=== PATIENT | female | born 1945 | race Caucasian/White ===

== ENCOUNTER 2019-08-08 17:09 | Inpatient (IN) | payer OTHER ==
[~2019-08-08] VITALS: Ht 160 cm; Wt 59.9 kg
[2019-08-08] MEDS ORDERED: OXYC20TA58 PO (17:36)
[2019-08-08] MEDS ORDERED: ALPR1TAB7 PO (17:36)
[2019-08-08] MEDS ORDERED: OXYC15TA82 PO (17:36)
[2019-08-08] MEDS ORDERED: ZOLP10TA6 PO (17:36)
[2019-08-08] MEDS ORDERED: ERYT-113 PO (17:36)
[2019-08-08] MEDS ORDERED: METO-358 PO (17:37)
--- NOTE | 2019-08-08 17:47 | NUR ---
[facility] provided for pt. pt eating with good apetite.
--- NOTE | 2019-08-08 18:09 | NUR ---
transfered the pt to [facility] in stable condition. pt remained calm the whole er stay.
[2019-08-08] MEDS ORDERED: MAGNESIUM HYDROXIDE 30 ML LIQUID UDC PO PRN (18:30)
[2019-08-08] MEDS ORDERED: MAG HYDROX/AL HYDROX/SIMETH 30 ML LIQUID UDC PO PRN (18:30)
--- NOTE | 2019-08-08 18:57 | NUR ---
Pt received to care from ER, pt is calm and cooperative. According to the hold patient was overwhelmed with taking care of her mother and became anxious and agitated, breaking things at home. Upon face to face evaluation, pt is recognizing need for help, admits to events that led to her admission. Pt says she has been taking care of her mother for 8 years and she cannot handle it anymore and she "lost it." Pt is cooperative, signed paperwork. dr. Tracey and dr. Mock were notified of admission. Report is passed on to the next shift.
[2019-08-08 20:00] VITALS: BP 168/90
[2019-08-08] MEDS ORDERED: HYDROCODONE/APAP 10-325 MG TABLET PO PRN (20:00)
[2019-08-08] MEDS: ZOLPIDEM 5 MG TABLET PO PRN (22:24)
[2019-08-09] MEDS: LORAZEPAM 1 MG TABLET PO PRN ×2 (00:13→18:49)
[2019-08-09 07:39] LABS: BASOPHILS % (AUTO) 0.4 % (0.0-2.0); EOSINOPHILS % (AUTO) 0.2 % (0.0-7.0); HEMATOCRIT 39.7 % (31.2-41.9); HEMOGLOBIN 13.5 g/dL (10.9-14.3); LYMPHOCYTES # (AUTO) 1.6 K/uL (20.0-40.0); LYMPHOCYTES % (AUTO) 24.9 % (20.5-51.5); MEAN CORPUSCULAR HEMOGLOBIN 31.1 uug (24.7-32.8); MEAN CORPUSCULAR HGB CONC 34 g/dL (32.3-35.6); MEAN CORPUSCULAR VOLUME 91.7 fL (75.5-95.3); MONOCYTES # (AUTO) 0.4 K/uL (2.0-10.0); MONOCYTES % (AUTO) 6.9 % (0.0-11.0); NEUTROPHILS # (AUTO) 4.3 K/uL (1.8-8.9); NEUTROPHILS % (AUTO) 67.6 % (38.5-71.5); PLATELET COUNT (AUTO) 298 K/uL (179-408); RED BLOOD CELL COUNT(AUTO) 4.33 MIL/uL (3.63-4.92); WHITE BLOOD COUNT (AUTO) 6.4 K/uL (3.8-11.8)
[2019-08-09 07:56] LABS: BILIRUBIN,TOTAL 0.8 mg/dL (0.2-1.0); CREATININE 0.9 mg/dL (0.6-1.3); POTASSIUM 3.8 mmol/L (3.5-5.1); TOTAL PROTEIN, SERUM 7.6 g/dL (6.4-8.2)
[2019-08-09 08:02] LABS: THYROID STIMULATING HORMONE 1.106 mIU/mL (0.358-3.740)
[2019-08-09] MEDS: METOPROLOL SUCCINATE XL 50 MG TAB.SR.24H PO SCH (08:11)
[2019-08-09 08:50] LABS: MAGNESIUM 2.1 mg/dL (1.8-2.4); PHOSPHOROUS 2.9 mg/dL (2.5-4.9)
--- NOTE | 2019-08-09 11:01 | NUR ---
Social Work/Initial Discharge Note: Patient lives in her condo with her mother [address] [place] [address] [address], [place] [address] and will return home upon discharge. Embedded Software Manager will continue to work with patient family, and MD to ensure a safe and proper discharge plan.
--- NOTE | 2019-08-09 14:36 | NUR ---
Social Work/Family Contact: Golf Cart Attendant spoke with Liliana Vinicius ([phone]) patient's daughter regarding patient's hospitalization. Liliana is informed of the patient's treatment plan and spoke with Dr. Tracey who will be ordering a neurological consultation for the patient.
--- NOTE | 2019-08-09 14:38 | NUR ---
Social Work/ UR Note: belt worker spoke with Aparna family service caseworker at [facility]/[employer] (ph: [phone]; fax: [phone]). This public relations writer faxed Aparna the patient's facesheet until the H&P and other clinicals are available. (Authorization # [id number])
--- NOTE | 2019-08-09 14:50 | NUR ---
Social Work/Firearms Report ([employer]): Dairy Clerk completed and submitted a [employer] firearms report for 5150 grave disability certification. A copy of report has been placed in patient chart.
[2019-08-09 16:00] VITALS: BP 163/93
--- NOTE | 2019-08-09 16:42 | NUR ---
called and spoke with Dr. Mariscal regarding Neurology consult ordered . will continue to follow up
[2019-08-09 20:00] VITALS: BP 183/100
[2019-08-09] MEDS: ATORVASTATIN 10 MG TABLET PO SCH (20:44)
[2019-08-09] MEDS ORDERED: hydrALAZINE HCL 25 MG TABLET ONE (21:25)
[2019-08-09] MEDS: hydrALAZINE HCL 25 MG TABLET PO PRN (21:29)
--- NOTE | 2019-08-09 21:30 | NUR ---
PATIENT NOTED WITH B/P 177/99MMHG AND PULSE 80BPM. PT IN NO DISTRESS. DR BEE WAS NOTIFY AND NEW ORDER OBTAINED TO ADMINISTER APRESOLINE 25MG PO PRN Q6HRS FOR SBP>160MMHG. ORDER WAS NOTED AND CARRIED OUT, WILL CONTINUE TO MONITOR.
[2019-08-09] MEDS: ZOLPIDEM 5 MG TABLET PO PRN (22:19)
--- NOTE | 2019-08-09 23:45 | NUR ---
B/P WAS RECHECKED: 155/98MMHG AND 82BPM.
[2019-08-09 23:53] VITALS: BP 155/98
[2019-08-10] MEDS: ACETAMINOPHEN 325 MG TABLET PO PRN ×2 (04:48→19:01)
[2019-08-10] MEDS: LORAZEPAM 1 MG TABLET PO PRN (04:48)
[2019-08-10 07:30] VITALS: BP_SYST 130; BP_SYST 166; BP_DIAS 67; BP_DIAS 91
[2019-08-10] MEDS: METOPROLOL SUCCINATE XL 50 MG TAB.SR.24H PO SCH (08:11)
[2019-08-10] MEDS: AMLODIPINE 5 MG TABLET PO SCH (08:12)
[2019-08-10] MEDS ORDERED: HYDROCODONE/APAP 10-325 MG TABLET PO PRN (08:45)
[2019-08-10] MEDS: GABAPENTIN 100 MG CAPSULE PO SCH ×3 (10:35→17:10)
[2019-08-10] MEDS: SERTRALINE HCL 50 MG TABLET PO SCH (10:35)
[2019-08-10] MEDS ORDERED: FLUO60SO3 TP (10:47)
[2019-08-10] MEDS ORDERED: OMEP40CA13 PO (10:47)
[2019-08-10] MEDS ORDERED: FLUT16SP NS (10:47)
[2019-08-10] MEDS ORDERED: GABA-532 PO (10:47)
[2019-08-10] MEDS ORDERED: ALPR1TAB7 PO (10:47)
[2019-08-10] MEDS ORDERED: ZOLP10TA2 PO (10:47)
[2019-08-10] MEDS ORDERED: MELO-107 PO (10:47)
[2019-08-10] MEDS ORDERED: METO100T14 PO (10:47)
[2019-08-10] MEDS ORDERED: LATA2.5D2 EACHEYE (10:47)
[2019-08-10] MEDS ORDERED: FLUOCINONIDE 0.05% SOLU 60 ML BOTTLE TP PRN (12:45)
[2019-08-10 17:06] VITALS: BP 162/98
[2019-08-10] MEDS: hydrALAZINE HCL 25 MG TABLET PO PRN (17:14)
[2019-08-10] MEDS: diphenhydrAMINE 25 MG CAP PO PRN (20:16)
[2019-08-10] MEDS: METOPROLOL TARTRATE 50 MG TABLET PO SCH (20:16)
[2019-08-10] MEDS: ATORVASTATIN 10 MG TABLET PO SCH (20:16)
[2019-08-10] MEDS: LATANOPROST OPHT DROP 2.5 ML BOTTLE EACHEYE SCH (20:17)
[2019-08-10 20:58] VITALS: BP 136/76
[2019-08-10] MEDS ORDERED: Medication Not On Formulary EA (Metoprolol Tartrate (Lopressor) 100 MG) PO SCH (21:00)
[2019-08-10] MEDS: HYDROXYZINE PAMOATE 25 MG CAPSULE PO PRN (21:41)
--- NOTE | 2019-08-10 23:08 | NUR ---
GPS: Pt.still awake at this time and highly anxious. Asking for her Ambien for insomnia. Reminded pt.that her Ambien was discontinued and was changed to Benadryl 5omg and was given to her earlier. Vistaril 25 mg was also given to her not too long ago for anxiety. Frequent re-assurance given to pt. Quiet environment provided to facilitate sleep. Will continue to re-assure prn. Fall precautions observed.
[2019-08-11] MEDS: HYDROXYZINE PAMOATE 25 MG CAPSULE PO PRN ×3 (04:05→16:28)
[2019-08-11] MEDS: ACETAMINOPHEN 325 MG TABLET PO PRN ×3 (04:05→16:28)
[2019-08-11] MEDS: PANTOPRAZOLE SODIUM 40 MG TABLET.DR PO SCH (06:03)
[2019-08-11 07:30] VITALS: BP 169/102
[2019-08-11] MEDS: FLUTICASONE PROP NASAL SPRAY 16 GM BOTTLE NS SCH (08:20)
[2019-08-11] MEDS: METOPROLOL TARTRATE 50 MG TABLET PO SCH ×2 (08:21→20:16)
[2019-08-11] MEDS: MELOXICAM 7.5 MG TABLET PO SCH (08:21)
[2019-08-11] MEDS: SERTRALINE HCL 50 MG TABLET PO SCH (08:22)
[2019-08-11] MEDS: AMLODIPINE 5 MG TABLET PO SCH (08:22)
[2019-08-11] MEDS: GABAPENTIN 100 MG CAPSULE PO SCH ×3 (08:22→16:28)
[2019-08-11] MEDS ORDERED: Medication Not On Formulary EA (Omeprazole 40 MG) PO SCH (09:00)
[2019-08-11] MEDS ORDERED: Medication Not On Formulary EA (Meloxicam 15 MG) PO SCH (09:00)
[2019-08-11] MEDS ORDERED: LORAZEPAM 0.5 MG TABLET PO PRN (12:15)
[2019-08-11 17:34] VITALS: BP 162/88
[2019-08-11] MEDS: LATANOPROST OPHT DROP 2.5 ML BOTTLE EACHEYE SCH (20:14)
[2019-08-11] MEDS: ATORVASTATIN 10 MG TABLET PO SCH (20:15)
[2019-08-11] MEDS: diphenhydrAMINE 25 MG CAP PO PRN (20:22)
[2019-08-11 20:23] VITALS: BP 151/85
--- NOTE | 2019-08-12 01:12 | NUR ---
RECEIVED PATIENT AWAKE AND REQUESTING FOR SOMETHING TO SLEEP.SHE C/O OF SEVERAL AILMENTS THAT GIVES HER PAIN ALL OVER ESPECIALLY HER NECK.SHE ATTRIBUTED IT TO AN EEG SHE HAD EARLIER ON. SHE WAS COMPLIANT WITH HER MEDS AND KEPT COMING OUT TO REQUEST FOR SLEEP AID. AT APPROX.23;00 SHE WAS GIVEN ATIVAN FOR AGITATION AND TO HELP HER SLEEP.SHE KEPT COMING OUT TO SAY SHE NEEDED MORE. SHE WAS LEAD BACK TO BED AND QUIET ENVIRONMENT WAS PROVIDED. FREQUENT VISUAL CHECKS MADE ON HER. WILL CONTINUE TO MONITOR.
[2019-08-12] MEDS: HYDROXYZINE PAMOATE 25 MG CAPSULE PO PRN ×3 (03:44→16:58)
[2019-08-12] MEDS: ACETAMINOPHEN 325 MG TABLET PO PRN ×3 (03:52→16:58)
[2019-08-12] MEDS: PANTOPRAZOLE SODIUM 40 MG TABLET.DR PO SCH (06:26)
--- NOTE | 2019-08-12 06:37 | NUR ---
SHE SLEPT ON AND OFF FOR ONLY 03;00HRS.SHE KEPT GETTING UP AND ASKING IF SOMETHING WAS GOING ON IN THIS PLACE. WHEN I SAID NO SHE SAID' DON'T LIE TO ME'. I KNOW SOMETHING IS WRONG.AT APPROX. 03;45 I GAVE HER VISTARIL FOR HER ANXIETY. SHE ALSO LATER HAD A SHOWER.
[2019-08-12 07:30] VITALS: BP 158/92
[2019-08-12] MEDS: MELOXICAM 7.5 MG TABLET PO SCH (09:02)
[2019-08-12] MEDS: METOPROLOL TARTRATE 50 MG TABLET PO SCH ×2 (09:02→20:21)
[2019-08-12] MEDS: SERTRALINE HCL 50 MG TABLET PO SCH (09:02)
[2019-08-12] MEDS: GABAPENTIN 100 MG CAPSULE PO SCH ×3 (09:02→16:58)
[2019-08-12] MEDS: AMLODIPINE 5 MG TABLET PO SCH (09:03)
[2019-08-12] MEDS: FLUTICASONE PROP NASAL SPRAY 16 GM BOTTLE NS SCH (09:04)
[2019-08-12 16:00] VITALS: BP 161/90
[2019-08-12] MEDS: LATANOPROST OPHT DROP 2.5 ML BOTTLE EACHEYE SCH (20:20)
[2019-08-12] MEDS: diphenhydrAMINE 25 MG CAP PO PRN (20:20)
[2019-08-12] MEDS: ATORVASTATIN 10 MG TABLET PO SCH (20:20)
[2019-08-12 20:33] VITALS: BP 144/87
--- NOTE | 2019-08-12 23:53 | NUR ---
RECEIVED PATIENT AWAKE IN BED.SHE IS INTRUSIVE BUT IS AMENDABLE TO REDIRECTION. CONSTANTLY REQUESTING FOR SOMETHING TO SLEEP. SLEEP AID GIVEN WITH LITTLE EFFECT.WILL CONTINUE WITH MONITORING.
[2019-08-13] MEDS: HYDROXYZINE PAMOATE 25 MG CAPSULE PO PRN ×2 (01:20→16:32)
[2019-08-13] MEDS: ACETAMINOPHEN 325 MG TABLET PO PRN ×2 (02:33→11:20)
[2019-08-13] MEDS: PANTOPRAZOLE SODIUM 40 MG TABLET.DR PO SCH (06:22)
--- NOTE | 2019-08-13 06:37 | NUR ---
SHE DID NOT SLEEP WELL.HAD APPROX.03;45HRS OF SLEEP. WAKES UP TO COME REQUEST SLEEPING MEDICATION EVERY HOUR OR SO.
[2019-08-13 07:30] VITALS: BP 169/89
[2019-08-13] MEDS: MELOXICAM 7.5 MG TABLET PO SCH (08:18)
[2019-08-13] MEDS: GABAPENTIN 100 MG CAPSULE PO SCH (08:18)
[2019-08-13] MEDS: AMLODIPINE 5 MG TABLET PO SCH (08:19)
[2019-08-13] MEDS: METOPROLOL TARTRATE 50 MG TABLET PO SCH ×2 (08:19→20:09)
[2019-08-13] MEDS: SERTRALINE HCL 50 MG TABLET PO SCH (08:20)
[2019-08-13] MEDS: FLUTICASONE PROP NASAL SPRAY 16 GM BOTTLE NS SCH (08:20)
[2019-08-13] MEDS ORDERED: LORAZEPAM 0.5 MG TABLET PO PRN (08:30)
[2019-08-13] MEDS: LORAZEPAM 1 MG TABLET PO PRN (08:37)
[2019-08-13] MEDS: hydrALAZINE HCL 25 MG TABLET PO PRN (08:38)
[2019-08-13] MEDS ORDERED: GABAPENTIN 100 MG CAPSULE PO SCH (09:00)
[2019-08-13] MEDS: GABAPENTIN 300 MG CAPSULE PO SCH ×2 (12:17→16:32)
--- NOTE | 2019-08-13 13:30 | NUR ---
Social Work/ UR Note: nursery worker faxed Aparna case finishing machine adjuster at [facility]/[employer] (ph: [phone]; fax: [phone]) patient's clinicals including history and physical, consultation, progress notes, and medication list. (Authorization # [id number]). This typewriter assembler left a voicemail message for a call back.
[2019-08-13 15:40] VITALS: BP 95/49
[2019-08-13 16:13] LABS: *BILIRUBIN,URIN NEGATIVE (NEGATIVE); *BLOOD, URINE NEGATIVE (NEGATIVE); *CLARITY,URINE CLEAR (CLEAR); *COLOR,URINE YELLOW (YELLOW); *KETONES,URINE NEGATIVE (NEGATIVE); *UROBILINOGEN,URINE 0.2 E.U./dl (NORMAL); LEUKOCYTE ESTERASE ,URINE NEGATIVE (NEGATIVE); NITRITE, URINE NEGATIVE (NEGATIVE); UGLUCOSE NEGATIVE (NEGATIVE)
[2019-08-13] MEDS: diphenhydrAMINE 25 MG CAP PO PRN (20:09)
[2019-08-13] MEDS: ATORVASTATIN 10 MG TABLET PO SCH (20:09)
[2019-08-13] MEDS: LATANOPROST OPHT DROP 2.5 ML BOTTLE EACHEYE SCH (20:11)
[2019-08-13 20:29] VITALS: BP 138/72
[2019-08-14] MEDS: ACETAMINOPHEN 325 MG TABLET PO PRN (03:10)
[2019-08-14] MEDS: LORAZEPAM 1 MG TABLET PO PRN (03:10)
[2019-08-14] MEDS: PANTOPRAZOLE SODIUM 40 MG TABLET.DR PO SCH (06:13)
[2019-08-14 07:46] VITALS: BP 129/99
[2019-08-14] MEDS: SERTRALINE HCL 50 MG TABLET PO SCH (08:16)
[2019-08-14] MEDS: MELOXICAM 7.5 MG TABLET PO SCH (08:16)
[2019-08-14] MEDS: GABAPENTIN 300 MG CAPSULE PO SCH ×3 (08:17→16:28)
[2019-08-14] MEDS: METOPROLOL TARTRATE 50 MG TABLET PO SCH ×2 (08:17→21:38)
[2019-08-14] MEDS: FLUTICASONE PROP NASAL SPRAY 16 GM BOTTLE NS SCH (08:17)
[2019-08-14] MEDS: AMLODIPINE 5 MG TABLET PO SCH (08:17)
[2019-08-14] MEDS ORDERED: SERTRALINE HCL 50 MG TABLET PO ONE (09:00)
[2019-08-14] MEDS: HYDROXYZINE PAMOATE 25 MG CAPSULE PO PRN (13:16)
--- NOTE | 2019-08-14 15:30 | NUR ---
Social Work/ UR Note: layout worker spoke with Aparna case assembler at [facility] (ph: [phone]; fax: [phone]) regarding patient's recent changes in medications and progress. SW also faxed patient's progress notes and medication list. (Authorization # [id number]). Aparna will also be making the patient's outpatient psychiatrist appointment and will let this verse writer know.
[2019-08-14 16:00] VITALS: BP 165/80
--- NOTE | 2019-08-14 16:23 | NUR ---
GPS: gave report to junior, patient will be transfered to room 325,
[2019-08-14] MEDS: hydrALAZINE HCL 25 MG TABLET PO PRN (16:39)
--- NOTE | 2019-08-14 17:00 | NUR ---
RECEIVED PATIENT 73 YEARS OLD FEMALE ÁNGEL PSYCH OVER R[place]MON[place] TO ROOM 325 ALERT ORIENTED AND COOPERATIVE DENIES SI OR HI ORIENTED TO ROOM AND THIRD FLOOR PROTOCOL MADE COMFORTABLE WILL CONTINUE TO OBSERVE AND PROVIDE SAFE AND THERAPEUTIC ENVIRONMENT AT ALL TIMES.
--- NOTE | 2019-08-14 17:44 | NUR ---
CALLED [facility] [place] RE PATIENT HAS MONEY DOCUMENTED ON HER INVENTORY BUT I DID NOT SEE ANY MONEY SPOKE WITH NADER CONSTANTINO RN AND HE STATED THAT PATIENT DOES NOT HAVE ANY MONEY STATED MAY BE HER FAMILY TOOK THE MONEY HOME.
[2019-08-14 20:38] VITALS: BP 145/71
[2019-08-14] MEDS: LATANOPROST OPHT DROP 2.5 ML BOTTLE EACHEYE SCH (21:17)
[2019-08-14] MEDS: ATORVASTATIN 10 MG TABLET PO SCH (21:20)
[2019-08-14] MEDS: diphenhydrAMINE 25 MG CAP PO PRN (21:41)
[2019-08-15] MEDS ORDERED: diphenhydrAMINE 50 MG CAPSULE PO ONE ×2 (01:00→22:15)
[2019-08-15] MEDS: diphenhydrAMINE 25 MG CAP PO PRN (01:01)
--- NOTE | 2019-08-15 01:05 | NUR ---
Called Dr. Tracey to request for sleeping pill. He ordered Benadryl 50 mg one time dose.
[2019-08-15] MEDS ORDERED: diphenhydrAMINE 50 MG CAPSULE PO PRN (07:30)
[2019-08-15] MEDS: PANTOPRAZOLE SODIUM 40 MG TABLET.DR PO SCH (07:40)
[2019-08-15] MEDS: FLUTICASONE PROP NASAL SPRAY 16 GM BOTTLE NS SCH (08:33)
[2019-08-15] MEDS: SERTRALINE HCL 50 MG TABLET PO SCH (08:34)
[2019-08-15] MEDS: AMLODIPINE 5 MG TABLET PO SCH (08:34)
[2019-08-15] MEDS: GABAPENTIN 300 MG CAPSULE PO SCH ×3 (08:34→16:02)
[2019-08-15] MEDS: MELOXICAM 7.5 MG TABLET PO SCH (08:34)
[2019-08-15] MEDS: METOPROLOL TARTRATE 50 MG TABLET PO SCH ×2 (08:34→20:39)
[2019-08-15] MEDS ORDERED: TRAZODONE 50 MG TABLET PO PRN (09:45)
[2019-08-15 11:49] VITALS: BP 121/73
[2019-08-15 16:27] VITALS: BP 146/76
--- NOTE | 2019-08-15 17:26 | NUR ---
Patient calm, cooperative with nursing care. Hyperverbal and jumping from one conversation to the next, rambles although she is pleasant. Safety precautions in place. Seen by today who will be in tomorrow to follow up as well. Sleeps intermittently throughout the day. Verbalized she does not know who she was when she acted "different and started breaking my favorite plates in my home and ripped off my neighbors windshield wipers." States she feels she is closer to going home, "I feel so much better now I am so happy I came."
--- NOTE | 2019-08-15 20:00 | NUR ---
AWAKE ALERT X4, ANXIOUS WANTED TO SLEEP.MEDICATIONS GIVEN,
[2019-08-15] MEDS: HYDROXYZINE PAMOATE 25 MG CAPSULE PO PRN (20:40)
[2019-08-15 21:00] VITALS: BP 156/73
[2019-08-15] MEDS: ATORVASTATIN 10 MG TABLET PO SCH (21:27)
--- NOTE | 2019-08-15 22:00 | NUR ---
AWAKE, WALKING IN THE HALLWAY,UNABLE TO SLEEP.VERY ANXIOUS.CALLED DR ALMANZAR REGARDING HER INABILITY TO SLEEP.LISY ORDERED.PT.
[2019-08-15] MEDS: LATANOPROST OPHT DROP 2.5 ML BOTTLE EACHEYE SCH (23:52)
--- NOTE | 2019-08-16 05:33 | NUR ---
slept after benadrl 100mg. condition unchaged, will go home in am.
[2019-08-16] MEDS: PANTOPRAZOLE SODIUM 40 MG TABLET.DR PO SCH (06:42)
[2019-08-16] MEDS: FLUTICASONE PROP NASAL SPRAY 16 GM BOTTLE NS SCH (08:11)
[2019-08-16] MEDS: METOPROLOL TARTRATE 50 MG TABLET PO SCH (08:11)
[2019-08-16] MEDS: SERTRALINE HCL 50 MG TABLET PO SCH (08:11)
[2019-08-16] MEDS: AMLODIPINE 5 MG TABLET PO SCH (08:11)
[2019-08-16] MEDS: GABAPENTIN 300 MG CAPSULE PO SCH (08:11)
--- NOTE | 2019-08-16 08:11 | NUR ---
Social Work/Discharge Note: Patient will be discharged back home today [address], [place] [address] ([phone]). Patents daughter, Liliana Colvin ([phone]) has agreed to provide transportation for patient at 11am. Patient is alert and oriented x4, denies suicidal and homicidal ideation, and is aware and agreeable with discharge plan. Patient presents with normal mood and full range affect. Patient will be following up with her psychiatrist Dr. Tiffany Hill [address], [place] [address] ([phone]) and has an appointment scheduled on September 19, 2019 at 3pm. Patient will also be following up with her primary care physician Dr. Ting Hinson [address] [place] [address] ([phone]) and has an appointment scheduled on Saturday August 17, 2019 at 2:30pm. Patient was also provided with mental health resources including [facility] Crisis Line [ ] and the National Suicide Prevention Lifeline [ ].
[2019-08-16] MEDS: MELOXICAM 7.5 MG TABLET PO SCH (08:12)
[2019-08-16 08:15] VITALS: BP 172/84
--- NOTE | 2019-08-16 11:20 | NUR ---
dc orders received noted and carried out,dc instruction and education given to the pt and her daughter,pt left the facility via private car in stable condition
== END 2019-08-16 11:25 | disposition home or self-care (01) | DRG 885 ==
LOC: ER 17:09 → GPS 17:48 → MEDSURG3 08-14 16:25 → GPSOV3 08-14 16:31
PROVIDERS: ADMIT Psychiatry & Neurology Psychiatry; ATTEND Hospitalist
DX: F29 Unspecified psychosis not due to a substance or known physiological condition (principal); E87.1 Hypo-osmolality and hyponatremia; F13.239 Sedative, hypnotic or anxiolytic dependence with withdrawal, unspecified; G40.509 Epileptic seizures related to external causes, not intractable, without status epilepticus; K21.9 Gastro-esophageal reflux disease without esophagitis; G89.29 Other chronic pain; G47.00 Insomnia, unspecified; F41.9 Anxiety disorder, unspecified; Z98.1 Arthrodesis status; E87.6 Hypokalemia; E78.5 Hyperlipidemia, unspecified; I10 Essential (primary) hypertension; Z79.891 Long term (current) use of opiate analgesic; Z90.49 Acquired absence of other specified parts of digestive tract; I67.2 Cerebral atherosclerosis; G62.9 Polyneuropathy, unspecified; Z79.899 Other long term (current) drug therapy
CPT/HCPCS: 36415; 70450; 83735; 84100; 84443; 85025; 87086; A4663; J3535; Q0163